=== PATIENT | female | born 1985 | race Caucasian/White ===

== ENCOUNTER 2018-01-24 18:52 | Emergency (ER) | payer OTHER, SELFPAY ==
[2018-01-24 19:12] VITALS: BP 106/70; PULSE 67; RESP 16; TEMP 36.7; O2SAT 100
--- NOTE | 2018-01-24 20:28 | ED.WOUNDLAC ---
HPI - Wound/Laceration <Heena Arango PA-C - Last Filed: 01/24/18 22:54> General Chief Complaint: Wound/Laceration Stated Complaint: laceration to index finger left hand Time Seen by Provider: 01/24/18 20:28 Source: patient Mode of arrival: ambulatory Limitations: no limitations History of Present Illness HPI narrative: This 33-year-old female was using sharp fabric scissors last night when a slip and cut her left pointer finger. She is left handed. She washed and cleaned this and put Neosporin on it and has kept it covered. She states that she feels like her strength is there and she is moving it okay, however she is concerned about possible nerve damage in that finger as the area where she cut herself feels numb today. She states this is mostly localized that time she feels like she has ?zingers with pain down that side of her finger. She states that her tetanus vaccine is up-to-date. She denies any other injury. She has not had fever or new redness. She denies any other complaints and notes that she normally takes Voltaren for pain and sometimes Tylenol, but did not today so she could evaluate the inflammation. Related Data Home Medications Medication Instructions Recorded Confirmed diclofenac sodium [Voltaren-XR] 100 mg PO DAILY 01/24/18 01/24/18 Allergies Allergy/AdvReac Type Severity Reaction Status Date / Time No Known Drug Allergies Allergy Verified 01/24/18 19:15 Review of Systems <Heena Arango PA-C - Last Filed: 01/24/18 22:54> Review of Systems All systems reviewed & are unremarkable except as noted in HPI and below PFSH <Heena Arango PA-C - Last Filed: 01/24/18 22:54> Comment: Rare EtOH Exam <Heena Arango PA-C - Last Filed: 01/24/18 22:54> Narrative Exam Narrative: GENERAL APPEARANCE: Patient sitting comfortably, in no distress. LUNGS: Clear to auscultation bilaterally. HEART: Rate and rhythm regular without murmur, normal S1 and S2, no S3 or S4. DERMATOLOGIC: Left pointer finger medial border to medial part of the pad there is a 1 cm laceration that is not open or bleeding, there is a 1-2 mm gap. This does not appear to be more than 2 mm in depth but not manipulated or opened to fully assess. Surrounding skin is normal, wound is clean without drainage MUSCULOSKELETAL: She has full range of motion of the left pointer finger, strength is intact in all boudreaux against resistance NEUROVASCULAR: Left pointer finger is warm and pink with brisk cap refill. Sensation is grossly intact but sharp/dull sensation somewhat reduced on the medial verses lateral side of the finger Initial Vital Signs Initial Vital Signs: Vital Signs Temperature 98.0 F 01/24/18 19:12 Pulse Rate 67 01/24/18 19:12 Respiratory Rate 16 01/24/18 19:12 Blood Pressure 106/70 01/24/18 19:12 Pulse Oximetry 100 01/24/18 19:12 <Janie Grissom DO - Last Filed: 01/25/18 03:52> Initial Vital Signs Initial Vital Signs: Vital Signs Temperature 98.0 F 01/24/18 19:12 Pulse Rate 67 01/24/18 19:12 Respiratory Rate 16 01/24/18 19:12 Blood Pressure 106/70 01/24/18 19:12 Pulse Oximetry 100 01/24/18 19:12 Course <Heena Arango PA-C - Last Filed: 01/24/18 22:54> Vital Signs - 8 hr 01/24/18 21:14 Pulse Rate 74 Respiratory Rate 16 Blood Pressure 106/73 Pulse Oximetry 97 <Janie Grissom DO - Last Filed: 01/25/18 03:52> Vital Signs - 8 hr 01/24/18 21:14 Pulse Rate 74 Respiratory Rate 16 Blood Pressure 106/73 Pulse Oximetry 97 Discharge Plan Departure Patient Disposition: Home Clinical Impression: Laceration, Numbness Discharge Date/Time: 01/24/18 21:15 Interventions: ED Discharge Assessment Last Done: 01/24/18 21:14 Instructions: DI for Laceration Repair Steri-Strips Activity Restrictions/Additional Instructions: Your laceration does not appear infected and appears to be healing. We did put some medical tape on it to help keep it closed and a dressing. You do have swelling around the area and this may be causing pressure on nerves, as well as some nerve inflammation from the actual cut itself. Please restart your Voltaren to help with pain and inflammation and keep the dressing on to keep pressure off of the finger. Add Tylenol as needed. Please reassess with your PCP in a few days or first of next week when the acute swelling and pain are better. The numbness may improve once the acute inflammation is down. Prescriptions: No Action diclofenac sodium [Voltaren-XR] 100 mg Tablet Extended Release 24 Hr 100 mg PO DAILY RF: 0 Referrals: [facility] [Other] <Janie Grissom DO - Last Filed: 01/25/18 03:52> Cosign ED Attending Cosignature Attestation: I was immediately available in the department for consultation. This documentation has been reviewed and I agree with assessment and plan. Supervised by Janie Grissom DO
[2018-01-24 21:14] VITALS: BP 106/73; PULSE 74; RESP 16; O2SAT 97
== END 2018-01-24 21:15 | disposition home or self-care (01) ==
PROVIDERS: Emergency Provider Internal Medicine
DX: S61.211A Laceration without foreign body of left index finger without damage to nail, initial encounter (principal); R20.0 Anesthesia of skin; W27.2XXA Contact with scissors, initial encounter
CPT/HCPCS: 99282; 99283